=== PATIENT | female | born 1980 | race Hispanic/Latino ===

== ENCOUNTER 2024-01-03 19:44 | Inpatient (IN) | payer SELFPAY ==
[~2024-01-03] VITALS: Ht 160 cm; Wt 80.4 kg
[2024-01-03 21:14] VITALS: PULSE 94; RESP 29; TEMP 96.7
[2024-01-03] MEDS: ONDANSETRON HCL INJ 2MG/ML 2ML 2 MG/ML VIAL IV STA (21:14)
[2024-01-03] MEDS: SODIUM CHLORIDE 0.9% 1000ML 1,000 ML IV ONE (21:14)
[2024-01-03] MEDS: DICYCLOMINE HCL 20 MG/2 ML VIAL IM ONE (21:14)
[2024-01-03 21:41] LABS: ALANINE AMINOTRANSFERASE 134 IU/L (0-55); ALBUMIN 3.9 g/dL (3.5-5.0); ALBUMIN/GLOBULIN RATIO 0.9 (0.8-2.0); ALKALINE PHOSPHATASE 502 IU/L (40-150); BILIRUBIN,TOTAL 2.6 mg/dL (0.2-1.2); BLOOD UREA NITROGEN 13 mg/dL (7-26); BUN/CREATININE RATIO 11 (6-25); CALCIUM 9.2 mg/dL (8.4-10.2); CHLORIDE 106 mmol/L (98-107); CREATININE, SERUM 1.14 mg/dL (0.57-1.11); EST GLOMERULAR FILTRATION RATE 61 ML/MIN (>=60); GLUCOSE 250 mg/dL (74-118); LIPASE 46 U/L (8-78); POTASSIUM 4.2 mmol/L (3.5-5.1); SODIUM 134 mmol/L (136-145); TOTAL PROTEIN 8.2 g/dL (6.5-8.1)
[2024-01-03 21:54] LABS: BASOPHILS # (AUTO) 0.1 (0.0-0.1); BASOPHILS % 0.5 % (0.0-1.0); EOSINOPHILS % 0.1 % (0.0-6.0); HEMATOCRIT 50.4 % (34.2-44.1); HEMOGLOBIN 16.2 g/dL (12.0-16.0); LYMPHOCYTES # (AUTO) 2.1 (1.0-3.2); LYMPHOCYTES % 13.4 % (18.0-39.1); MEAN CORPUSCULAR HEMOGLOBIN 31.6 pg (28-32); MEAN CORPUSCULAR HGB CONC 32.1 g/dL (31-35); MEAN CORPUSCULAR VOLUME 98.4 fL (81-99); MONOCYTES # (AUTO) 1.5 (0.2-0.8); MONOCYTES % 9.7 % (4.4-11.3); NEUTROPHILS # (AUTO) 11.6 (2.1-6.9); NEUTROPHILS % 75.5 % (38.7-80.0); PLATELET COUNT 271 x10e3/uL (140-360); RED BLOOD COUNT 5.12 x10e6/uL (3.6-5.1); RED CELL DISTRIBUTION WIDTH 14.4 % (11.7-14.4); WHITE BLOOD COUNT 15.31 x10e3/uL (4.8-10.8)
[2024-01-03 22:00] LABS: CLARITY,URINE SL CLOUDY (CLEAR); COLOR,URINE YELLOW (YELLOW); GLUCOSE, URINE 500 (NEGATIVE); KETONES,URINE >=160 (NEGATIVE); LEUKOCYTE ESTERASE ,URINE NEGATIVE (NEGATIVE); NITRITE,URINE NEGATIVE (NEGATIVE); PH,URINE 5.5 (5 - 7); PROTEIN,URINE DIPSTICK 2+ (NEGATIVE)
[2024-01-03 22:01] LABS: BILIRUBIN,URINE SMALL (NEGATIVE); URINE UROBILINOGEN 0.2 mg/dL (0.2 - 1)
[2024-01-03 22:02] LABS: BACTERIA,URINE MANY /HPF; EPITHELIAL CELLS,URINE MODERATE /LPF; WBC,URINE (MAN) 0-5 /HPF (0-5)
[2024-01-03 22:07] LABS: ANION GAP 27.2 mmol/L (8-16)
[2024-01-03 22:09] LABS: CARBON DIOXIDE < 5 mmol/L (22-29)
[2024-01-03 22:45] LABS: TROPONIN I < 0.001 ng/mL (0-0.300)
[2024-01-03] MEDS ORDERED: Morphine 4mg INJECTION 4 MG/ML INJ IV PRN (22:45)
[2024-01-03 22:55] LABS: BLOOD UREA NITROGEN 13 mg/dL (7-26); BUN/CREATININE RATIO 15 (6-25); CALCIUM 8.1 mg/dL (8.4-10.2); CHLORIDE 110 mmol/L (98-107); CREATININE, SERUM 0.84 mg/dL (0.57-1.11); EST GLOMERULAR FILTRATION RATE 88 ML/MIN (>=60); GLUCOSE 239 mg/dL (74-118); MAGNESIUM 2.1 MG/DL (1.3-2.1); POTASSIUM 4.5 mmol/L (3.5-5.1); SODIUM 135 mmol/L (136-145)
[2024-01-03 23:00] LABS: ANION GAP 24.5 mmol/L (8-16); CARBON DIOXIDE < 5 mmol/L (22-29)
[2024-01-03] MEDS: INSULIN REGULAR, HUMAN 3ML VL 100 UNIT in SODIUM CHLORIDE 0.9% 100 ML IV SCH (23:07)
[2024-01-03] MEDS: SODIUM CHLORIDE 0.9% 1000ML 1,000 ML IV SCH (23:09)
[2024-01-03] MEDS: MUPIROCIN 2% OINT 22 GM TUBE TOP SCH (23:10)
[2024-01-04] VITALS (69 sets, daily range): BP systolic 81–127; BP diastolic 35–87; PULSE 81–113; RESP 17–33; TEMP 97.1–99.3; O2SAT 96–100
[2024-01-04] MEDS: DEXTROSE 5%/0.45% SOD CHL 1,000 ML IV SCH (01:39)
[2024-01-04 03:48] LABS: ANION GAP 19.8 mmol/L (8-16); CALCIUM 8.4 mg/dL (8.4-10.2); CREATININE, SERUM 0.98 mg/dL (0.57-1.11); MAGNESIUM 2.1 MG/DL (1.3-2.1); POTASSIUM 3.8 mmol/L (3.5-5.1)
[2024-01-04 06:42] LABS: BASOPHILS # (AUTO) 0.1 (0.0-0.1); BASOPHILS % 0.4 % (0.0-1.0); HEMATOCRIT 47.1 % (34.2-44.1); HEMOGLOBIN 15.1 g/dL (12.0-16.0); LYMPHOCYTES # (AUTO) 1.6 (1.0-3.2); MEAN CORPUSCULAR HEMOGLOBIN 31.7 pg (28-32); MEAN CORPUSCULAR HGB CONC 32.1 g/dL (31-35); MEAN CORPUSCULAR VOLUME 98.7 fL (81-99); MONOCYTES # (AUTO) 1.6 (0.2-0.8); MONOCYTES % 9.6 % (4.4-11.3); NEUTROPHILS # (AUTO) 12.7 (2.1-6.9); NEUTROPHILS % 78.6 % (38.7-80.0); PLATELET COUNT 211 x10e3/uL (140-360); RED BLOOD COUNT 4.77 x10e6/uL (3.6-5.1); RED CELL DISTRIBUTION WIDTH 14.1 % (11.7-14.4); WHITE BLOOD COUNT 16.17 x10e3/uL (4.8-10.8)
[2024-01-04 07:07] LABS: ALBUMIN 3.6 g/dL (3.5-5.0); ALBUMIN/GLOBULIN RATIO 0.9 (0.8-2.0); ANION GAP 20.7 mmol/L (8-16); BILIRUBIN,TOTAL 2.2 mg/dL (0.2-1.2); CALCIUM 8.5 mg/dL (8.4-10.2); POTASSIUM 3.7 mmol/L (3.5-5.1); TOTAL PROTEIN 7.4 g/dL (6.5-8.1)
[2024-01-04] MEDS ORDERED: BISACODYL 10 MG SUPP PR PRN (10:00)
[2024-01-04] MEDS ORDERED: HYDRALAZINE HCL 20 MG/ML VIAL IV PRN (10:00)
[2024-01-04] MEDS ORDERED: SODIUM CHLORIDE 0.9% 1000ML 500 ML IV ONE (10:15)
[2024-01-04] MEDS: SODIUM CHLORIDE 0.9% 500ML 500 ML IV ONE (11:56)
[2024-01-04 14:04] LABS: ANION GAP 16.3 mmol/L (8-16); CREATININE, SERUM 0.98 mg/dL (0.57-1.11); MAGNESIUM 1.7 MG/DL (1.3-2.1)
[2024-01-04 14:12] LABS: POTASSIUM 3.3 mmol/L (3.5-5.1)
[2024-01-04] MEDS: POTASSIUM CHLORIDE 10MEQ EA PO ONE ×2 (14:26→18:14)
[2024-01-04] MEDS: ENOXAPARIN SOD INJ 40 MG/0.4 ML SYR SC SCH (17:01)
[2024-01-04 17:54] LABS: ANION GAP 12.1 mmol/L (8-16); CALCIUM 8.2 mg/dL (8.4-10.2); CREATININE, SERUM 1.13 mg/dL (0.57-1.11); MAGNESIUM 1.7 MG/DL (1.3-2.1)
[2024-01-04 17:56] LABS: POTASSIUM 3.1 mmol/L (3.5-5.1)
[2024-01-04] MEDS: METRONIDAZOLE 500MG/NS 100ML 100 ML IV SCH (22:38)
[2024-01-05] VITALS (23 sets, daily range): BP systolic 86–120; BP diastolic 56–84; PULSE 81–102; RESP 16–24; TEMP 98.1–99.1; O2SAT 98–100
[2024-01-05 04:34] LABS: CALCIUM 8.3 mg/dL (8.4-10.2); CREATININE, SERUM 0.91 mg/dL (0.57-1.11); MAGNESIUM 1.6 MG/DL (1.3-2.1)
[2024-01-05 04:37] LABS: ANION GAP 2.4 mmol/L (8-16)
[2024-01-05 04:38] LABS: POTASSIUM 2.4 mmol/L (3.5-5.1)
[2024-01-05] MEDS: MAGNESIUM SULF 1GRAM/DEXTROSE 100 ML IV PRN (04:47)
[2024-01-05] MEDS: POTASSIUM CHLORIDE 20MEQ/100ML 200 ML ONE (04:48)
[2024-01-05] MEDS: MAGNESIUM SULF 1GRAM/DEXTROSE 100 ML IV ONE (04:48)
[2024-01-05] MEDS: POTASSIUM CHLORIDE 20MEQ/100ML 200 ML IV PRN (04:48)
[2024-01-05 08:25] LABS: BASOPHILS % 0.4 % (0.0-1.0); EOSINOPHILS % 0.4 % (0.0-6.0); HEMATOCRIT 36.7 % (34.2-44.1); HEMOGLOBIN 12.5 g/dL (12.0-16.0); LYMPHOCYTES # (AUTO) 1.4 (1.0-3.2); LYMPHOCYTES % 20.4 % (18.0-39.1); MEAN CORPUSCULAR HEMOGLOBIN 31.7 pg (28-32); MEAN CORPUSCULAR HGB CONC 34.1 g/dL (31-35); MEAN CORPUSCULAR VOLUME 93.1 fL (81-99); MONOCYTES # (AUTO) 0.8 (0.2-0.8); NEUTROPHILS # (AUTO) 4.5 (2.1-6.9); NEUTROPHILS % 66.2 % (38.7-80.0); PLATELET COUNT 153 x10e3/uL (140-360); RED BLOOD COUNT 3.94 x10e6/uL (3.6-5.1); RED CELL DISTRIBUTION WIDTH 14.3 % (11.7-14.4); WHITE BLOOD COUNT 6.77 x10e3/uL (4.8-10.8)
[2024-01-05 08:46] LABS: ALBUMIN 2.7 g/dL (3.5-5.0); ALBUMIN/GLOBULIN RATIO 0.9 (0.8-2.0); ANION GAP 7.8 mmol/L (8-16); BILIRUBIN,TOTAL 2.3 mg/dL (0.2-1.2); CALCIUM 8.2 mg/dL (8.4-10.2); CREATININE, SERUM 0.86 mg/dL (0.57-1.11); TOTAL PROTEIN 5.6 g/dL (6.5-8.1)
[2024-01-05] MEDS: DOCUSATE SODIUM 100 MG CAP PO SCH (08:48)
[2024-01-05] MEDS: SENNOSIDES 8.6 MG TAB PO SCH (08:48)
[2024-01-05 08:50] LABS: POTASSIUM 2.8 mmol/L (3.5-5.1)
[2024-01-05 09:06] LABS: THYROID STIMULATING HORMONE 1.887 uIU/mL (0.350-4.940)
[2024-01-05] MEDS: POTASSIUM CHLORIDE 20MEQ/100ML 100 ML IV SCH (10:17)
[2024-01-05 14:08] LABS: ANION GAP 10.3 mmol/L (8-16); CALCIUM 8.3 mg/dL (8.4-10.2); CREATININE, SERUM 0.86 mg/dL (0.57-1.11); MAGNESIUM 1.9 MG/DL (1.3-2.1); POTASSIUM 3.3 mmol/L (3.5-5.1)
[2024-01-05] MEDS ORDERED: POTASSIUM CHLORIDE 20MEQ/100ML 100 ML ONE (17:49)
[2024-01-05 17:52] LABS: ANION GAP 10.8 mmol/L (8-16); CALCIUM 7.7 mg/dL (8.4-10.2); CREATININE, SERUM 0.77 mg/dL (0.57-1.11)
[2024-01-05 17:57] LABS: POTASSIUM 2.8 mmol/L (3.5-5.1)
[2024-01-05] MEDS: POTASSIUM CHLORIDE 20MEQ/100ML 200 ML IV ONE (18:20)
[2024-01-05 22:15] LABS: ANION GAP 10.1 mmol/L (8-16); CALCIUM 8.1 mg/dL (8.4-10.2); CREATININE, SERUM 0.73 mg/dL (0.57-1.11)
[2024-01-05 22:17] LABS: POTASSIUM 3.1 mmol/L (3.5-5.1)
[2024-01-06] VITALS (15 sets, daily range): BP systolic 80–108; BP diastolic 61–71; PULSE 79–98; RESP 15–20; TEMP 98.4–98.7; O2SAT 97–100
[2024-01-06 02:37] LABS: ANION GAP 9.8 mmol/L (8-16); CALCIUM 7.8 mg/dL (8.4-10.2); CREATININE, SERUM 0.72 mg/dL (0.57-1.11)
[2024-01-06 02:39] LABS: POTASSIUM 2.8 mmol/L (3.5-5.1)
[2024-01-06 06:45] LABS: BASOPHILS % 0.4 % (0.0-1.0); EOSINOPHILS # (AUTO) 0.1 (0.0-0.4); EOSINOPHILS % 1.3 % (0.0-6.0); HEMATOCRIT 35.5 % (34.2-44.1); HEMOGLOBIN 12.3 g/dL (12.0-16.0); LYMPHOCYTES # (AUTO) 1.2 (1.0-3.2); LYMPHOCYTES % 24.4 % (18.0-39.1); MEAN CORPUSCULAR HEMOGLOBIN 31.8 pg (28-32); MEAN CORPUSCULAR HGB CONC 34.6 g/dL (31-35); MEAN CORPUSCULAR VOLUME 91.7 fL (81-99); MONOCYTES # (AUTO) 0.6 (0.2-0.8); MONOCYTES % 13.4 % (4.4-11.3); NEUTROPHILS # (AUTO) 2.9 (2.1-6.9); NEUTROPHILS % 60.1 % (38.7-80.0); PLATELET COUNT 134 x10e3/uL (140-360); RED BLOOD COUNT 3.87 x10e6/uL (3.6-5.1); RED CELL DISTRIBUTION WIDTH 15.1 % (11.7-14.4); WHITE BLOOD COUNT 4.76 x10e3/uL (4.8-10.8)
[2024-01-06 07:04] LABS: INR 1.01; PROTHROMBIN TIME 13.8 seconds (11.9-14.5)
[2024-01-06] MEDS: POTASSIUM CHLORIDE 20MEQ/100ML 200 ML ONE (07:15)
[2024-01-06 07:21] LABS: ALBUMIN 2.5 g/dL (3.5-5.0); ALBUMIN/GLOBULIN RATIO 0.9 (0.8-2.0); ANION GAP 8.2 mmol/L (8-16); BILIRUBIN,DIRECT 2.5 mg/dL (0.0-0.5); BILIRUBIN,TOTAL 3.2 mg/dL (0.2-1.2); CALCIUM 7.9 mg/dL (8.4-10.2); CREATININE, SERUM 0.67 mg/dL (0.57-1.11); MAGNESIUM 1.7 MG/DL (1.3-2.1); TOTAL PROTEIN 5.3 g/dL (6.5-8.1)
[2024-01-06 07:22] LABS: POTASSIUM 3.2 mmol/L (3.5-5.1)
[2024-01-06] MEDS: ONDANSETRON HCL INJ 2MG/ML 2ML 2 MG/ML VIAL IV PRN (07:25)
[2024-01-06 08:25] LABS: HEPATITIS B CORE AB TOTAL NEGATIVE; HEPATITIS B SURFACE AG (P) NEGATIVE
[2024-01-06 08:28] LABS: HEPATITIS C ANTIBODY NON-REACTIVE
[2024-01-06] MEDS: FLUCONAZOLE 100 MG TAB PO ONE (11:51)
[2024-01-06 12:53] LABS: ANION GAP 12.3 mmol/L (8-16); CALCIUM 8.3 mg/dL (8.4-10.2); CREATININE, SERUM 0.66 mg/dL (0.57-1.11)
[2024-01-06 12:54] LABS: POTASSIUM 3.3 mmol/L (3.5-5.1)
[2024-01-06] MEDS: ACETAMINOPHEN 325 MG TAB PO PRN (13:18)
[2024-01-06] MEDS ORDERED: MAGNESIUM SULF 1GRAM/DEXTROSE 100 ML IV PRN (16:30)
[2024-01-06 18:50] LABS: ANION GAP 11.3 mmol/L (8-16); BLOOD UREA NITROGEN < 5 mg/dL (7-26); BUN/CREATININE RATIO 8 (6-25); CALCIUM 8.4 mg/dL (8.4-10.2); CARBON DIOXIDE 19 mmol/L (22-29); CHLORIDE 110 mmol/L (98-107); CREATININE, SERUM 0.64 mg/dL (0.57-1.11); EST GLOMERULAR FILTRATION RATE 112 ML/MIN (>=60); GLUCOSE 227 mg/dL (74-118); POTASSIUM 3.3 mmol/L (3.5-5.1); SODIUM 137 mmol/L (136-145)
[2024-01-07] VITALS (13 sets, daily range): BP systolic 91–106; BP diastolic 62–74; PULSE 68–87; RESP 10–20; TEMP 97.9–98.8; O2SAT 94–100
[2024-01-07 01:43] LABS: ANION GAP 8.6 mmol/L (8-16); BLOOD UREA NITROGEN < 5 mg/dL (7-26); CALCIUM 8.2 mg/dL (8.4-10.2); CARBON DIOXIDE 21 mmol/L (22-29); CHLORIDE 112 mmol/L (98-107); CREATININE, SERUM 0.62 mg/dL (0.57-1.11); EST GLOMERULAR FILTRATION RATE 113 ML/MIN (>=60); GLUCOSE 216 mg/dL (74-118); SODIUM 139 mmol/L (136-145)
[2024-01-07 01:44] LABS: BUN/CREATININE RATIO 8 (6-25)
[2024-01-07 01:47] LABS: POTASSIUM 2.6 mmol/L (3.5-5.1)
[2024-01-07] MEDS: POTASSIUM CHLORIDE 20MEQ/100ML 100 ML ONE (01:53)
[2024-01-07 06:58] LABS: BASOPHILS % 0.8 % (0.0-1.0); EOSINOPHILS # (AUTO) 0.1 (0.0-0.4); HEMATOCRIT 34.6 % (34.2-44.1); HEMOGLOBIN 12.1 g/dL (12.0-16.0); LYMPHOCYTES # (AUTO) 1.1 (1.0-3.2); LYMPHOCYTES % 27.6 % (18.0-39.1); MEAN CORPUSCULAR HEMOGLOBIN 32.1 pg (28-32); MEAN CORPUSCULAR VOLUME 91.8 fL (81-99); MONOCYTES # (AUTO) 0.4 (0.2-0.8); MONOCYTES % 10.8 % (4.4-11.3); NEUTROPHILS # (AUTO) 2.3 (2.1-6.9); NEUTROPHILS % 58.5 % (38.7-80.0); PLATELET COUNT 135 x10e3/uL (140-360); RED BLOOD COUNT 3.77 x10e6/uL (3.6-5.1); RED CELL DISTRIBUTION WIDTH 15.1 % (11.7-14.4); WHITE BLOOD COUNT 3.99 x10e3/uL (4.8-10.8)
[2024-01-07 08:22] LABS: ALANINE AMINOTRANSFERASE 95 IU/L (0-55); ALBUMIN 2.5 g/dL (3.5-5.0); ALKALINE PHOSPHATASE 290 IU/L (40-150); ANION GAP 8.8 mmol/L (8-16); BILIRUBIN,TOTAL 5.1 mg/dL (0.2-1.2); BLOOD UREA NITROGEN < 5 mg/dL (7-26); CALCIUM 8.3 mg/dL (8.4-10.2); CARBON DIOXIDE 22 mmol/L (22-29); CHLORIDE 111 mmol/L (98-107); CREATININE, SERUM 0.59 mg/dL (0.57-1.11); EST GLOMERULAR FILTRATION RATE 114 ML/MIN (>=60); GLUCOSE 227 mg/dL (74-118); SODIUM 139 mmol/L (136-145); TOTAL PROTEIN 5.1 g/dL (6.5-8.1)
[2024-01-07 08:38] LABS: BUN/CREATININE RATIO 8 (6-25)
[2024-01-07 08:39] LABS: POTASSIUM 2.8 mmol/L (3.5-5.1)
[2024-01-07] MEDS ORDERED: DEXTROSE 50% SYRINGE 50 ML IV PRN (08:45)
[2024-01-07] MEDS: INSULIN GLARGINE 100 UNITS/ML VIAL SQ SCH (09:02)
[2024-01-07] MEDS ORDERED: POTASSIUM CHLORIDE 20MEQ/100ML 200 ML IV PRN (09:15)
[2024-01-07] MEDS ORDERED: NPH, HUMAN INSULIN ISOPHANE 100 UNIT/1 ML 3ML VIAL SQ SCH (09:15)
[2024-01-07] MEDS: POTASSIUM CHLORIDE 20 MEQ TAB CR PO ONE (09:37)
[2024-01-07] MEDS: INSULIN REGULAR, HUMAN 100 UNIT/1 ML SQ SCH ×2 (11:28→11:29)
[2024-01-07] MEDS: NPH, HUMAN INSULIN ISOPHANE 100 UNIT/1 ML 3ML VIAL SQ SCH (16:34)
[2024-01-08] VITALS: BP 93/67; PULSE 84; RESP 18; TEMP 98.4; O2SAT 99
[2024-01-08 04:00] VITALS: BP 92/63; PULSE 79; RESP 15; TEMP 98.4; O2SAT 98
[2024-01-08 06:29] LABS: BASOPHILS # (AUTO) 0.1 (0.0-0.1); BASOPHILS % 0.9 % (0.0-1.0); EOSINOPHILS # (AUTO) 0.3 (0.0-0.4); EOSINOPHILS % 4.9 % (0.0-6.0); HEMATOCRIT 38.6 % (34.2-44.1); HEMOGLOBIN 13.4 g/dL (12.0-16.0); LYMPHOCYTES # (AUTO) 2.5 (1.0-3.2); LYMPHOCYTES % 43.8 % (18.0-39.1); MEAN CORPUSCULAR HGB CONC 34.7 g/dL (31-35); MEAN CORPUSCULAR VOLUME 92.1 fL (81-99); MONOCYTES # (AUTO) 0.6 (0.2-0.8); MONOCYTES % 10.4 % (4.4-11.3); NEUTROPHILS # (AUTO) 2.3 (2.1-6.9); NEUTROPHILS % 39.7 % (38.7-80.0); PLATELET COUNT 184 x10e3/uL (140-360); RED BLOOD COUNT 4.19 x10e6/uL (3.6-5.1); RED CELL DISTRIBUTION WIDTH 15.4 % (11.7-14.4); WHITE BLOOD COUNT 5.75 x10e3/uL (4.8-10.8)
[2024-01-08 07:34] LABS: ALANINE AMINOTRANSFERASE 103 IU/L (0-55); ALBUMIN 2.8 g/dL (3.5-5.0); ALBUMIN/GLOBULIN RATIO 0.9 (0.8-2.0); ALKALINE PHOSPHATASE 300 IU/L (40-150); ANION GAP 11.3 mmol/L (8-16); BILIRUBIN,TOTAL 4.6 mg/dL (0.2-1.2); BLOOD UREA NITROGEN < 5 mg/dL (7-26); CALCIUM 8.7 mg/dL (8.4-10.2); CARBON DIOXIDE 22 mmol/L (22-29); CHLORIDE 106 mmol/L (98-107); CREATININE, SERUM 0.59 mg/dL (0.57-1.11); EST GLOMERULAR FILTRATION RATE 114 ML/MIN (>=60); GLUCOSE 138 mg/dL (74-118); SODIUM 137 mmol/L (136-145); TOTAL PROTEIN 5.9 g/dL (6.5-8.1)
[2024-01-08 07:37] LABS: BUN/CREATININE RATIO 8 (6-25)
[2024-01-08 08:00] VITALS: BP 103/75; PULSE 84; RESP 16; TEMP 97.9; O2SAT 100
[2024-01-08] MEDS ORDERED: SODIUM CHLORIDE 0.9% 250ML 250 ML ONE (08:24)
[2024-01-08 12:00] VITALS: BP 109/78; PULSE 89; RESP 18; TEMP 98.1; O2SAT 100
[2024-01-08] MEDS ORDERED: NOVOLIN N100 UNIT/1 (13:45)
[2024-01-08] MEDS ORDERED: NOVOLIN R100 UNIT/1 (13:46)
[2024-01-08 16:18] LABS: POTASSIUM 3.1 mmol/L (3.5-5.1)
== END 2024-01-08 14:37 | disposition home or self-care (01) | DRG 638 ==
LOC: ER 20:11 → ERHOLD 22:37 → ICU 23:56
PROVIDERS: ADMIT Internal Medicine; ATTEND Internal Medicine
PROC: 02HV33Z Insertion of Infusion Device into Superior Vena Cava, Percutaneous Approach (ICD-10-PCS; principal; 2024-01-05)
DX: E11.10 Type 2 diabetes mellitus with ketoacidosis without coma (principal); K80.01 Calculus of gallbladder with acute cholecystitis with obstruction; K86.2 Cyst of pancreas; D75.1 Secondary polycythemia; R06.02 Shortness of breath; R33.9 Retention of urine, unspecified; R74.01 Elevation of levels of liver transaminase levels; R79.89 Other specified abnormal findings of blood chemistry; E66.9 Obesity, unspecified; Z68.31 Body mass index [BMI] 31.0-31.9, adult; Z79.84 Long term (current) use of oral hypoglycemic drugs
CPT/HCPCS: 36415; 36569; 71045; 74181; 76705; 78226; 80048; 80053; 81001; 82248; 82948; 83036; 83690; 83735; 84443; 84484; 84702; 85025; 85610; 86704; 93005; 94799; 99252; 99284; A9537; J0696; J1650; J2405; J2470; J2543; J3475; J3480; J7030; J7050